=== PATIENT | female | born 1990 | race Caucasian/White ===

== ENCOUNTER 2020-03-11 14:12 | Emergency (ER) | payer OTHER, SELFPAY ==
--- NOTE | 2020-03-11 14:34 | PC.NURSE ---
1430- name called and pt not in the waiting room. pt left without registration or any services provided
== END 2020-03-11 14:35 | disposition left against medical advice (07) ==
PROVIDERS: Emergency Provider Nurse Practitioner Family
DX: Z53.21 Procedure and treatment not carried out due to patient leaving prior to being seen by health care provider (principal)
CPT/HCPCS: 99199